=== PATIENT | female | born 2000 | race Caucasian/White ===

== ENCOUNTER 2024-03-27 10:08 | Emergency (ER) | payer OTHER, BC, SELFPAY ==
[2024-03-27 10:13] VITALS: BP 147/106; PULSE 98; TEMP 37; O2SAT 98; BMI 39.8
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
[2024-03-27 11:12] VITALS: BP 126/88; PULSE 88; O2SAT 98
== END 2024-03-27 11:13 | disposition home or self-care (01) ==
PROVIDERS: Emergency Provider Emergency Medicine; PCP Nurse Practitioner Family
DX: S20.219A Contusion of unspecified front wall of thorax, initial encounter (principal); S90.811A Abrasion, right foot, initial encounter; V49.49XA Driver injured in collision with other motor vehicles in traffic accident, initial encounter; M25.531 Pain in right wrist; M25.572 Pain in left ankle and joints of left foot
CPT/HCPCS: 71045; 73110; 73610; 99284